=== PATIENT | male | born 1960 | race Caucasian/White ===

== ENCOUNTER 2022-05-17 14:18 | Emergency (ER) | payer MEDICAID ==
[~2022-05-17] VITALS: Ht 172.7 cm; Wt 77.0 kg
[2022-05-17 14:20] VITALS: BP 116/77
[2022-05-17] MEDS ORDERED: SODIUM CHLORIDE 0.9% 1,000 ML IV ONE (15:00)
[2022-05-17 15:36] LABS: BASOPHILS % 0.5 % (0.0-2.0); EOSINOPHILS % 1.4 % (0.0-5.0); HEMATOCRIT. 43.2 % (42.0-52.0); HEMOGLOBIN. 14.2 g/dL (14.0-18.0); LYMPHOCYTES % 23.5 % (20.0-50.0); MEAN CORPUSCULAR HEMOGLOBIN 30.2 pg (28.0-32.0); MEAN CORPUSCULAR VOLUME 91.7 fL (80.0-94.0); MEAN PLATELET VOLUME 7.1 fl (7.4-10.4); MONOCYTES % 13.1 % (2.0-8.0); NEUTROPHILS % 61.5 % (40.0-76.0); PLATELET 194 x1000/uL (130-400); RED BLOOD CELL COUNT 4.72 mill/uL (4.7-6.1); RED CELL DISTRIBUTION WIDTH 15.1 % (11.6-14.6)
[2022-05-17 15:42] LABS: CHLORIDE 103 mEq/L (98-107)
== END 2022-05-17 19:35 | disposition home or self-care (01) ==
LOC: ER 15:31
DX: R53.1 Weakness (principal); R42 Dizziness and giddiness; R06.02 Shortness of breath; R00.0 Tachycardia, unspecified
CPT/HCPCS: 36415; 71045; 80053; 85025; 93005; 96360; 99285